=== PATIENT | male | born 1995 | race Caucasian/White ===

== ENCOUNTER 2016-02-25 00:08 | Inpatient (IN) | payer MEDICAID ==
[~2016-02-25] VITALS: Ht 180.3 cm; Wt 79.0 kg
[2016-02-25] MEDS ORDERED: DIPHENHYDRAMINE 50 MG/ML VIAL IM PRN (05:45)
[2016-02-25] MEDS ORDERED: LORAZEPAM 2 MG/ML VIAL IM PRN (05:45)
[2016-02-25] MEDS ORDERED: HALOPERIDOL 5 MG/ML VIAL IM PRN (05:45)
[2016-02-25] MEDS ORDERED: ALU/MAG/SIM 30 ML UDC PO PRN (05:45)
[2016-02-25] MEDS ORDERED: LORAZEPAM 2 MG TAB PO PRN (05:45)
[2016-02-25] MEDS ORDERED: MAG HYDROX 30 ML UDC PO PRN (05:45)
[2016-02-25] MEDS ORDERED: HALOPERIDOL 5 MG TAB PO PRN (05:45)
[2016-02-25] MEDS ORDERED: ACETAMINOPHEN 325 MG TAB PO PRN (05:45)
[2016-02-25] MEDS ORDERED: TRAZODONE 50 MG TAB PO PRN (05:45)
[2016-02-25] MEDS ORDERED: DIPHENHYDRAMINE 50 MG CAP PO PRN (05:45)
[2016-02-25 06:26] VITALS: BP_SYST 146; RESP 18; TEMP 98
[2016-02-25 06:28] VITALS: Ht 180.3 cm; Wt 79.0 kg
[2016-02-25 07:00] VITALS: BP_SYST 129; RESP 20; TEMP 98.6
[2016-02-25] MEDS: NICOTINE 21 MG/24 HR TRANSDERM SCH (09:00)
[2016-02-25] MEDS: ESCITALOPRAM 10 MG TAB PO SCH (17:00)
[2016-02-25 20:11] VITALS: BP_SYST 135; RESP 18; TEMP 98.4
[2016-02-26 07:55] VITALS: BP_SYST 141; RESP 18; TEMP 98.5
[2016-02-26] MEDS: ESCITALOPRAM 10 MG TAB PO SCH (08:09)
[2016-02-26] MEDS: NICOTINE 21 MG/24 HR TRANSDERM SCH (08:09)
[2016-02-26 10:44] VITALS: BP_SYST 141; RESP 18; TEMP 98.5
== END 2016-02-26 12:04 | disposition home or self-care (01) | DRG 881 ==
LOC: ER 00:08 → PSY 05:05
PROVIDERS: ADMIT Psychiatry & Neurology Psychiatry; ATTEND Psychiatry & Neurology Psychiatry
DX: F32.9 Major depressive disorder, single episode, unspecified (principal); F17.200 Nicotine dependence, unspecified, uncomplicated; F43.25 Adjustment disorder with mixed disturbance of emotions and conduct; Y92.410 Unspecified street and highway as the place of occurrence of the external cause
CPT/HCPCS: 36415; 70450; 72125; 80053; 80307; 80320; 80329; 81003; 85025